=== PATIENT | male | born 1975 | race Two or more races ===

== ENCOUNTER 2022-04-16 06:36 | Day surgery (SDC) | payer OTHER ==
[~2022-04-16] VITALS: Ht 180.3 cm; Wt 127.0 kg
== END 2022-04-16 17:53 | disposition home or self-care (01) ==
LOC: CIR.AMB 06:36
PROVIDERS: ATTEND Orthopaedic Surgery Hand Surgery
DX: G56.01 Carpal tunnel syndrome, right upper limb (principal); Z91.013 Allergy to seafood; Z20.822 Contact with and (suspected) exposure to COVID-19